=== PATIENT | male | born 1995 | race Caucasian/White ===

== ENCOUNTER 2018-09-09 09:13 | Emergency (ER) | payer SELFPAY ==
[~2018-09-09] VITALS: Ht 172.7 cm; Wt 93.0 kg
[2018-09-09 09:15] VITALS: BP 155/77
== END 2018-09-09 10:34 | disposition home or self-care (01) ==
LOC: ER 09:13
DX: S90.122A Contusion of left lesser toe(s) without damage to nail, initial encounter (principal); W22.8XXA Striking against or struck by other objects, initial encounter; Y93.89 Activity, other specified; Y92.488 Other paved roadways as the place of occurrence of the external cause
CPT/HCPCS: 73630; 99283